=== PATIENT | male | born 1980 | race African-American/Black ===

== ENCOUNTER 2018-02-25 15:16 | Emergency (ER) | payer SELFPAY | END 2018-02-25 18:37 | disposition home or self-care (01) | LOC: D.ER 15:16 | DX: K59.00 Constipation, unspecified (principal); R10.12 Left upper quadrant pain; K21.9 Gastro-esophageal reflux disease without esophagitis ==

== ENCOUNTER 2018-08-06 20:13 | Emergency (ER) | payer SELFPAY ==
[~2018-08-06] VITALS: Ht 188 cm; Wt 102.7 kg
[2018-08-06 20:26] VITALS: Ht 188 cm; Wt 102.7 kg
[2018-08-06 22:21] VITALS: BP 151/99
== END 2018-08-06 22:22 | disposition home or self-care (01) ==
LOC: D.ER 20:13
DX: M62.830 Muscle spasm of back (principal); F17.200 Nicotine dependence, unspecified, uncomplicated